=== PATIENT | female | born 1990 | race African-American/Black ===

== ENCOUNTER 2016-08-01 09:36 | Emergency (ER) | payer MEDICAID ==
[~2016-08-01] VITALS: Ht 177.8 cm; Wt 109.0 kg
[~2016-08-01 09:36] MED LIST: IBUP600 PO; PERI8.6T PO; PNVPAK PO; XANA0.5T PO
[2016-08-01 09:37] VITALS: BP 118/75; PULSE 75; RESP 16; TEMP 98.8; O2SAT 100
--- NOTE | 2016-08-01 10:01 | PD ---
HPI Chief Complaint: Eye Problems/Injury Time Seen by Provider: 10:00 Travel History International Travel<30 days: No Contact w/Intl Traveler<30days: No Traveled to known affect area: No History of Present Illness HPI 26-year-old female presents to emergency Department with complaint of a lump to her left lower eyelid 2 weeks. Denies change in vision. Denies drainage from the eye. Denies fever, chills, nausea, vomiting. Says she has tried warm compresses to the affected area and it did get smaller but it still has not gone away. Reports the lump is painful. Has not taken any other medications or tried any other treatments to alleviate her symptoms. Allergies to latex and tomatoes. No other modifying factors or associated signs and symptoms. [facility] Past Medical History Depression: Yes ?: Not LMP: 07/12/16 Miscarriage: 1 Social History Alcohol Use: No Tobacco Use: Yes (04/13 ppd) Substance Use: No Allergies-Medications (Allergen,Severity, Reaction): Coded Allergies: Latex (Verified Allergy, Severe, SKIN SENSITIVITY, 08/01/16) Tomato (Verified Allergy, Mild, 08/01/16) Reported Meds & Prescriptions Reported Meds & Active Scripts Active Ibuprofen 800 Mg Tab 800 Mg PO Q6HR PRN Polytrim Opth Drops (Polymyxin/Trimethoprim Sulfate) 10,000-0.1 Unit/Ml-% Soln 2 Drop LEFT EYE Q6HR 7 Days Review of Systems Except as stated in HPI: all other systems reviewed are Neg Physical Exam Narrative GENERAL: Well-nourished, well-developed female patient, in no acute distress SKIN: Warm and dry. HEAD: Atraumatic. Normocephalic. EYES: Pupils equal and round at 3 mm with brisk reaction. PERRLA. EOMI. left lower lid with internal sty; with tenderness to palpation; no drainage noted. No orbital tenderness, erythema or cellulitis. No photophobia. No consensual photophobia. No scleral icterus. ENT: Mucosa pink and moist. Airway patent. NECK: Trachea midline. CARDIOVASCULAR: Regular rate. RESPIRATORY: No accessory muscle use. GASTROINTESTINAL: Rounded. NEUROLOGICAL: Awake and alert. Oriented 3. No obvious cranial nerve deficits. Motor grossly within normal limits. Normal speech. PSYCHIATRIC: Appropriate mood and affect; insight and judgment normal. Data Data Last Documented VS Vital Signs Date Time Temp Pulse Resp B/P Pulse Ox O2 Delivery O2 Flow Rate FiO2 08/01/16 09:37 98.8 75 16 118/75 100 Room Air Orders Mandatory Outpatient Referral (08/01/16 10:08) [facility] Medical Decision Making Medical Screen Exam Complete: Yes Emergency Medical Condition: Yes Medical Record Reviewed: Yes Differential Diagnosis hordeolum, chalazion, foreign body Narrative Course 26-year-old female with an internal stye to the left lower eyelid. She has had it for approximately 2 weeks. It is tender to palpation and without drainage. No orbital cellulitis, tenderness to palpation, erythema, or edema. Polytrim eyedrops and ibuprofen prescribed for home. Mandatory referral to ophthalmology entered as patient may need drainage of the stye. Instructed patient to continue warm compresses. Instructed patient to follow up with ophthalmology. Patient verbalizes understanding and agreement with treatment plan. Patient is medically cleared and stable for discharge. Discussed reasons to return to the emergency department. Instructed patient to follow up with primary care provider. Patient agrees with treatment plan. The patients vital signs are stable and the patient is stable for outpatient follow-up and treatment. Patient discharged home, stable and in no acute distress. Diagnosis Primary Impression: Hordeolum of left lower eyelid Qualified Code: H00.025 - Hordeolum internum of left lower eyelid Referrals: [employer] Specialist Primary Care Physician Patient Instructions: General Instructions, Ivis (ED) Departure Forms: Tests/Procedures, Work Release Enter return to work date: Aug 03, 2016 Additional Instructions: Do not try to pop the sty or squeeze pus from the sty Clean-air eyelid gently with mild soap and water Warm compresses to affected eye 2-3 times daily to encourage the sty to drain on its own Keep your eye clean; don't wear makeup Do not wear contact lenses; go without contact lenses until this diagnosis away Follow-up with ophthalmology as needed Follow-up with primary care provider Return to the emergency department immediately with worsening of symptoms Med/Other Pt SpecificInfo: Prescription(s) given Scripts Ibuprofen 800 Mg Yks627 Mg PO Q6HR PRN (PAIN) #30 TAB Ref 0 Prov:Ayesha Hernadez [employer] 08/01/16 Polymyxin B-Trimethoprim Opth Drops (Polytrim Opth Drops)10,000-0.1 Unit/Ml-% Soln2 Drop LEFT EYE Q6HR 7 Days Ref 0 Prov:Ayesha Hernadez 08/01/16 Disposition: 01 DISCHARGE HOME Condition: Stable Ayesha Hernadez Aug 01, 2016 10:01
[2016-08-01] MEDS ORDERED: POLY10O LEFT EYE (10:08)
[2016-08-01] MEDS ORDERED: IBUP800T23 PO (10:08)
== END 2016-08-01 10:21 | disposition home or self-care (01) ==
LOC: NEPK 09:36
DX: H00.025 Hordeolum internum left lower eyelid (principal); F17.210 Nicotine dependence, cigarettes, uncomplicated
CPT/HCPCS: 99283

== ENCOUNTER 2017-02-15 08:58 | Emergency (ER) | payer MEDICAID, OTHER ==
[~2017-02-15] VITALS: Ht 177.8 cm; Wt 110.0 kg
[~2017-02-15 08:58] MED LIST changes: +CELE20TA PO; -IBUP600 PO; -PERI8.6T PO; -PNVPAK PO; +PREN1CAP7 PO; -XANA0.5T PO; +ZOFR4TAB PO
[2017-02-15 09:00] VITALS: BP 141/70; PULSE 77; RESP 14; TEMP 98.4; O2SAT 97
--- NOTE | 2017-02-15 09:33 | PD ---
HPI Chief Complaint: Abnormal Results Time Seen by Provider: 09:31 Travel History International Travel<30 days: No Contact w/Intl Traveler<30days: No Traveled to known affect area: No History of Present Illness HPI 26-year-old female came to the emergency room sent by her OB since her hemoglobin that they checked by fingerstick was 7.5. Patient says she was discharged home from their office last Wednesday with iron pills. She took 1 pill last night. She is here to find out more about the anemia. Patient is 13 weeks . She says she has been feeling weak. Patient is A1. No history of vaginal bleed or rectal bleeding. Her appetite has been okay. PFSH Past Medical History Narrative Medical List of her past medical, surgical, social and family history is reviewed from the nursing note. Anxiety: Yes Depression: Yes Influenza Vaccination: No ?: LMP: 11/13/16 : 2 Miscarriage: 1 Past Surgical History Surgical History: No Previous Surgery Social History Alcohol Use: No Tobacco Use: No Substance Use: No Allergies-Medications (Allergen,Severity, Reaction): Coded Allergies: latex (Unverified Allergy, Severe, SKIN SENSITIVITY, 02/15/17) tomato (Unverified Allergy, Mild, 02/15/17) Comments List of her allergies reviewed from the nursing note. Reported Meds & Prescriptions Reported Meds & Active Scripts Active Metronidazole 500 Mg Tab 500 Mg PO BID 7 Days Citranatal [place] ( W/O Vit A W/ Fe Fumar) 27-1-260 Mg Cap 1 Cap PO DAILY Zofran (Ondansetron HCl) 4 Mg Tab 4 Mg PO Q6HR PRN 10 Days Celexa (Citalopram Hydrobromide) 20 Mg Tab 20 Mg PO DAILY 30 Days Narrative Medication List of her home medications reviewed from the nursing note. Review of Systems Except as stated in HPI: all other systems reviewed are Neg Neurologic: Positive: Weakness Physical Exam Narrative GENERAL: Awake, alert, no obvious distress SKIN: Focused skin assessment warm/dry. HEAD: Atraumatic. Normocephalic. EYES: Pupils equal and round. No scleral icterus. No injection or drainage. ENT: No nasal bleeding or discharge. Mucous membranes pink and moist. NECK: Trachea midline. No JVD. CARDIOVASCULAR: Regular rate and rhythm. No murmur appreciated. RESPIRATORY: No accessory muscle use. Clear to auscultation. Breath sounds equal bilaterally. GASTROINTESTINAL: Abdomen soft, non-tender, nondistended. Hepatic and splenic margins not palpable. MUSCULOSKELETAL: No obvious deformities. No clubbing. No cyanosis. No edema. NEUROLOGICAL: Awake and alert. No obvious cranial nerve deficits. Motor grossly within normal limits. Normal speech. PSYCHIATRIC: Appropriate mood and affect; insight and judgment normal. Data Data Last Documented VS Vital Signs Date Time Temp Pulse Resp B/P (MAP) Pulse Ox O2 Delivery O2 Flow Rate FiO2 02/15/17 12:02 02/15/17 09:00 98.4 77 14 97 Orders Orders Complete Blood Count With Diff (02/15/17 09:36) Type And Screen (02/15/17 09:36) Ed Discharge Order (02/15/17 11:34) AGID (02/15/17 09:41) Antibody Titer (02/15/17 12:26) Labs Laboratory Tests Test 02/15/17 09:40 White Blood Count 8.0 TH/MM3 Red Blood Count 4.34 MIL/MM3 Hemoglobin 12.4 GM/DL Hematocrit 37.2 % Mean Corpuscular Volume 85.8 FL Mean Corpuscular Hemoglobin 28.7 PG Mean Corpuscular Hemoglobin Concent 33.4 % Red Cell Distribution Width 14.3 % Platelet Count 243 TH/MM3 Mean Platelet Volume 8.1 FL Neutrophils (%) (Auto) 61.7 % Lymphocytes (%) (Auto) 28.5 % Monocytes (%) (Auto) 9.3 % Eosinophils (%) (Auto) 0.3 % Basophils (%) (Auto) 0.2 % Neutrophils # (Auto) 4.9 TH/MM3 Lymphocytes # (Auto) 2.3 TH/MM3 Monocytes # (Auto) 0.7 TH/MM3 Eosinophils # (Auto) 0.0 TH/MM3 Basophils # (Auto) 0.0 TH/MM3 CBC Comment DIFF FINAL Differential Comment MDM Medical Decision Making Medical Screen Exam Complete: Yes Emergency Medical Condition: Yes Medical Record Reviewed: Yes Differential Diagnosis Gestational anemia, symptomatic anemia, lab error Narrative Course 11:30 AM blood test result is back and the hemoglobin and hematocrit are within normal limit. I'll discharge her home. I've explained this to the patient. Procedures EKG Prior to Arrival: No Diagnosis Primary Impression: Qualified Codes: Z3A.13 - 13 weeks gestation of Referrals: Primary Care Physician Additional Instructions: Please follow-up with your OB. Continue taking the pills. Drink lots of fluids to stay hydrated. Enough sleep. Do not drink alcohol during the . Do not smoke cigarettes during the . Do not do drugs during the . Med/Other Pt SpecificInfo: No Change to Meds Disposition: 01 DISCHARGE HOME Condition: Stable Renee Aguilar MD Feb 15, 2017 09:33
[2017-02-15 10:22] LABS: AUTOMATED NEUTROPHIL # 4.9 TH/MM3 (1.8-7.7); BASOPHIL % 0.2 % (0.0-2.0); EOSINOPHIL % 0.3 % (0.0-4.0); HEMATOCRIT 37.2 % (35.0-46.0); HEMO FLAGS DIFF FINAL; LYMPH % 28.5 % (9.0-44.0); LYMPHOCYTE # 2.3 TH/MM3 (1.0-4.8); MEAN CELL VOLUME 85.8 FL (80.0-100.0); MEAN CORPUSCULAR HEMOGLOBIN 28.7 PG (27.0-34.0); MEAN CORPUSCULAR HGB CONC 33.4 % (32.0-36.0); MONO % 9.3 % (0.0-8.0); NEUT % 61.7 % (16.0-70.0); PLATELET COUNT 243 TH/MM3 (150-450); RED BLOOD COUNT 4.34 MIL/MM3 (4.00-5.30); RED CELL DISTRIBUTION WIDTH 14.3 % (11.6-17.2)
[2017-02-17] MEDS ORDERED: METR1TAB76 PO (11:21)
== END 2017-02-15 12:02 | disposition home or self-care (01) ==
LOC: NEPC 08:58
DX: O99.011 Anemia complicating pregnancy, first trimester (principal); D64.9 Anemia, unspecified; Z3A.13 13 weeks gestation of pregnancy
CPT/HCPCS: 85025; 86077; 86850; 86870; 86886; 86900; 86901; 86902; 86920; 86922; 99283

== ENCOUNTER 2017-07-25 13:58 | Emergency (ER) | payer OTHER ==
[~2017-07-25] VITALS: Ht 180.3 cm; Wt 104.3 kg
[~2017-07-25 13:58] MED LIST changes: +ELASMIS OTHER
--- NOTE | 2017-07-25 15:12 | PD ---
HPI Chief Complaint leak of fluid Date Seen: Jul 25, 2017 Time Seen: 15:07 Travel History International Travel<30 Days: No Contact w/Intl Traveler<30Days: No Known Affected Area: No History of Present Illness HPI pt. is a 27 y/o @ 36 weeks w/ c/o lof. pt. states thruout day has had increasing lof. pt. states does not wear panties and not sure if d/c or srom. +FM, no vb, no ctxs. Weeks Gestation: 36 Para: 4 : 6 History Past Medical History Medical History: Denies Significant Hx Obstetric History Obstetric History , x 4, sab x 1 Past Surgical History Surgical History: No Previous Surgery Family History Family History: Negative Social History Alcohol Use: No Tobacco Use: No Substance Abuse: No Allergies-Medications (Allergen,Severity, Reaction): Coded Allergies: latex (Unverified Allergy, Severe, SKIN SENSITIVITY, 04/19/17) tomato (Unverified Allergy, Mild, 04/19/17) Home Meds Active Scripts Compr.stocking,Thigh,Reg,Large (Compression Thigh Stocking) 1 Each Each, % OTHER DAILY for Prevent Blood Clot, #2 1 Refill Prov:Georgette Rosen CNM [facility] 04/19/17 W/O Vit A W/ Fe Fumar (Citranatal [place]) 27-1-260 Mg Cap, 1 CAP PO DAILY for Nutritional Supplement, #30 CAP 3 Refills Prov:Georgette Rosen CNM [facility] 02/11/17 Ondansetron (Zofran) 4 Mg Tab, 4 MG PO Q6HR Y for NAUSEA OR VOMITING for 10 Days , #10 TAB 1 Refill Prov:Georgette Rosen CNM [facility] 02/11/17 Citalopram (Celexa) 20 Mg Tab, 20 MG PO DAILY for Control Depression for 30 Days , #30 TAB 2 Refills Prov:Georgette Rosen CNM [facility] 02/11/17 Review of Systems Except as stated in HPI: all other systems reviewed are Neg Physical Exam Narrative GENERAL: Well-nourished, well-developed patient. SKIN: Warm and dry. HEAD: Normocephalic and atraumatic. EYES: No scleral icterus. No injection or drainage. ENT: No nasal drainage noted. Mucous membranes pink. Airway patent. NECK: Supple, trachea midline. No JVD. CARDIOVASCULAR: Regular rate and rhythm without murmurs, gallops, or rubs. RESPIRATORY: Breath sounds equal bilaterally. No accessory muscle use. BREASTS: Bilateral exam showed no masses , no retractions, no nipple discharge. ABDOMEN/GI: Abdomen soft, non-tender, bowel sounds present, no rebound, no guarding Gravid GENITOURINARY: External Genitalia: intact and normal in appearance Membranes: intact, amniosure - Uterine Contractions:none FHT's: Category: 1 Reactive:+ Variability: mod EXTREMITIES: No cyanosis or edema. BACK: Nontender without obvious deformity. No CVA tenderness. NEUROLOGICAL: Awake and alert. Motor and sensory grossly within normal limits. Five out of 5 muscle strength in all muscle groups. Normal speech. Data Data Vital Signs Reviewed: Yes Orders Orders Cell Operator Clear For Discharge (07/25/17 ) [facility] Medical Record Reviewed: Yes Plan pt. w/o srom. condition d/w pt. pt. to be d/c to home. given precautions for return. all ? answered. f/u as sched. Diagnosis Diagnosis: Primary Impression: 36 weeks gestation of Additional Impression: Uterine contractions during Disposition: 01 DISCHARGE HOME Neal Jauregui Jr., MD Jul 25, 2017 15:12
== END 2017-07-25 15:38 | disposition home or self-care (01) ==
LOC: HOBED 13:58
DX: O47.03 False labor before 37 completed weeks of gestation, third trimester (principal); Z3A.36 36 weeks gestation of pregnancy; Z79.899 Other long term (current) drug therapy
CPT/HCPCS: 59025; 84112

== ENCOUNTER 2017-08-07 07:34 | Emergency (ER) | payer OTHER ==
[2017-08-07 07:39] VITALS: BP 129/65; PULSE 69; RESP 18; TEMP 97.5; O2SAT 100
[2017-08-07] MEDS ORDERED: MUPI2%T TOPICAL (07:50)
[2017-08-07] MEDS ORDERED: IBUP-232 PO (07:50)
--- NOTE | 2017-08-07 08:00 | PD ---
HPI Chief Complaint: Injury Time Seen by Provider: 07:42 Travel History International Travel<30 days: No Contact w/Intl Traveler<30days: No Traveled to known affect area: No History of Present Illness HPI 27-year-old female presents emergency department with painful sore to the inner side of the right heel, which she has had approximately 1 week. She states it started from a tight spot on her tennis shoe, which development of a blister, and now she is concerned about possible infection. She states the pain is 7 out of 10. She has been using honey topically. She states minimal drainage. She denies bleeding. No fever, chills, or other symptoms. She is allergic to tomatoes and latex. PFSH Past Medical History Anxiety: Yes Depression: Yes : 2 Miscarriage: 1 Social History Alcohol Use: No Tobacco Use: No Substance Use: No Allergies-Medications (Allergen,Severity, Reaction): Coded Allergies: latex (Unverified Allergy, Severe, SKIN SENSITIVITY, 04/19/17) tomato (Unverified Allergy, Mild, 04/19/17) Reported Meds & Prescriptions Reported Meds & Active Scripts Active Ibuprofen 600 Mg Tab 600 Mg PO Q8H PRN Bactroban Topical (Mupirocin) 22 Gm Cream 1 Applic TOPICAL BID Review of Systems Except as stated in HPI: all other systems reviewed are Neg General / Constitutional: No: Fever Eyes: No: Visual changes HENT: No: Headaches Cardiovascular: No: Chest Pain or Discomfort Respiratory: No: Shortness of Breath Gastrointestinal: No: Abdominal Pain Genitourinary: No: Dysuria Musculoskeletal: No: Pain Skin: Positive Lesions (See history of present illness per), No Rash Neurologic: No: Weakness Psychiatric: No: Depression Endocrine: No: Polydipsia Hematologic/Lymphatic: No: Easy Bruising Physical Exam Narrative GENERAL: Patient appears in no obvious distress. She is ambulatory to the room SKIN: Warm and dry. Normal color. Normal turgor. Patient has a dime sized ulcerative type lesion to the right lateral heel with localized induration and mild erythema. There is no significant drainage or bleeding HEAD: Atraumatic. Normocephalic. EYES: Pupils equal and round. No scleral icterus. No injection or drainage. ENT: No nasal bleeding or discharge. Mucous membranes pink and moist. Pharynx is clear. Airways patent. NECK: Trachea midline. Supple and nontender CARDIOVASCULAR: Regular rate and rhythm. RESPIRATORY: No accessory muscle use. Clear to auscultation. Breath sounds equal bilaterally. MUSCULOSKELETAL: Extremities without clubbing, cyanosis, or edema. No obvious deformities. NEUROLOGICAL: Awake and alert. No obvious cranial nerve deficits. Motor grossly within normal limits. Five out of 5 muscle strength in the arms and legs. Normal speech. PSYCHIATRIC: Appropriate mood and affect; insight and judgment normal. Data Data Last Documented VS Vital Signs Date Time Temp Pulse Resp B/P (MAP) Pulse Ox O2 Delivery O2 Flow Rate FiO2 08/07/17 07:39 97.5 69 18 129/65 (86) 100 MDM Medical Decision Making Medical Screen Exam Complete: Yes Emergency Medical Condition: Yes Differential Diagnosis Blister. Ulceration. Cellulitis Narrative Course Patient was treated with Bactroban ointment twice daily after washing with soap and water. Patient is given ibuprofen 600 mg 3 times daily as needed pain #30. Patient is to keep the area covered with a fabric bandage as discussed. Patient should avoid wearing tight fitting shoes over this area until fully healed. Patient to follow-up if symptoms do not improve Diagnosis Primary Impression: Blister of right heel with infection Qualified Codes: S90.821A - Blister (nonthermal), right foot, initial encounter; L08.9 - Local infection of the skin and subcutaneous tissue, unspecified Patient Instructions: Cellulitis (ED), General Instructions Additional Instructions: Patient was treated with Bactroban ointment twice daily after washing with soap and water. Patient is given ibuprofen 600 mg 3 times daily as needed pain #30. Patient is to keep the area covered with a fabric bandage as discussed. Patient should avoid wearing tight fitting shoes over this area until fully healed. Patient to follow-up if symptoms do not improve Med/Other Pt SpecificInfo: Prescription(s) given Scripts Ibuprofen (Ibuprofen) 600 Mg Tab 600 MG PO Q8H Y for PAIN, #30 TAB 0 Refills Prov: Rolando Alvarez MD 08/07/17 Mupirocin Topical (Bactroban Topical) 22 Gm Cream 1 APPLIC TOPICAL BID for Mgmt Bacterial Infection, #1 TUBE 0 Refills Prov: Rolando Alvarez MD 08/07/17 Disposition: 01 DISCHARGE HOME Condition: Stable Sim Anne Aug 07, 2017 08:00
== END 2017-08-07 08:15 | disposition home or self-care (01) ==
LOC: NEPD 07:34
DX: S90.821A Blister (nonthermal), right foot, initial encounter (principal); L08.9 Local infection of the skin and subcutaneous tissue, unspecified; X58.XXXA Exposure to other specified factors, initial encounter
CPT/HCPCS: 99283